=== PATIENT | female | born 1965 | race Caucasian/White ===

== ENCOUNTER 2018-11-11 23:23 | Observation (INO) | payer OTHER ==
[~2018-11-11] VITALS: Ht 154.9 cm; Wt 63.2 kg
--- NOTE | 2018-11-11 23:43 | ED.ADGEN ---
Past History Past Medical History: Hypertension Adult General Chief Complaint Chief Complaint ".. I was out walking my dogs.... Sudeep.. Bonilla and .. Roverto.. Roverto is mom.. but afterwards I came in ... I started getting really dizzy.. and next thing I know guess I passed out... and fell.. I bruised up this Lt arm good.. ... now I got a head ache, nauseated... and some neck pain... besides this Lt. arm pain.. ".. " It seemed like I was getting tunnel vision before I went down..." HPI HPI Patient is a 53 year old female who presents with a syncopal or near syncopal episode where she fell on her right arm. Patient states her field of vision se ems to be closing and before she fell. Patient did have some palpitations before the fall. Patient denies any history of recent change in meds. Patient does smoke. No previous history of strokes or TIA TIAs. No previous cardiac history. Patient does have a history of hypertension. Patient normally follows Dr. Coronado. No recent travel or specific ill contacts. No history immunosu ppression. Some recent complaints of chills. Review of Systems Review of Systems Constitutional: Hx of chills [] Eyes: Denies change in visual acuity, redness, or eye pain [] HENT: Denies nasal congestion or sore throat [] Respiratory: Denies cough or shortness of breath [] Cardiovascular: No additional information not addressed in HPI [] GI: Denies abdominal pain, nausea, vomiting, bloody stools or diarrhea [] : Denies dysuria or hematuria [] Musculoskeletal: Denies back pain or joint pain [] Except complaints of Lt upper arm pain. Integument: Denies rash or skin lesions [] Neurologic: Denies headache, focal weakness or sensory changes []complaints of syncope or near syncopal event and fall Endocrine: Denies polyuria or polydipsia [] All other systems were reviewed and found to be within normal limits, except as documented in this note. Family History Family History Noncontributory Current Medications Current Medications Current Medications Medications (Trade) Dose Ordered Sig/Caro Start Time Stop Time Status Last Admin Dose Admin Lactated Ringer's 1,000 ml @ 1,000 mls/hr Q1H 11/12/18 00:30 11/12/18 01:29 DC 11/12/18 00:18 1,000 MLS/HR Ondansetron HCl (Zofran) 8 mg 1X ONCE 11/12/18 00:30 11/12/18 00:31 DC 11/12/18 00:18 8 MG See nursing for home meds Allergies Allergies Allergies Coded Allergies Type Severity Reaction Last Updated Verified Opioids - Morphine Analogues Allergy Intermediate 11/12/18 Yes Opioids-Meperidine and Related Allergy Intermediate 11/12/18 Yes Opioids-Methadone and Related Allergy Intermediate 11/12/18 Yes Sulfa (Sulfonamide Antibiotics) Allergy Intermediate 11/12/18 Yes codeine Allergy Intermediate 11/12/18 Yes No known drug allergies Physical Exam Physical Exam Constitutional: Moderate acute distress, non-toxic appearance. [] HENT: Normocephalic, atraumatic, bilateral external ears normal, oropharynx moist, no oral exudates, nose normal. [] Eyes: PERRLA, EOMI, conjunctiva normal, no discharge. Glasses Neck: Normal range of motion, no tenderness, supple, no stridor. [] Cardiovascular:Heart rate regular rhythm, no murmur []PMI bilaterally to the left Lungs & Thorax: Bilateral breath sounds equal apex with scattered wheezes auscultation [] Abdomen: Bowel sounds normal, soft, no tenderness, no masses, no pulsatile masses. [] Old surgical scars Skin: Warm, dry, no erythema, no rash. [] Scars on arms after skin removal- (after weight loss ). Back: No tenderness, no CVA tenderness. [] Extremities: No tenderness, no cyanosis, no clubbing, ROM intact, no edema. [] Large hematoma contusion left humeral area Neurologic: Alert and oriented X 3, normal motor function, normal sensory function, no focal deficits noted. []DTRs +2 patella and brachial. Small Battery Plate Assembler equal. Distal vibratory sensation present. Air-conduction more than bone conduction and no lateralization. 128 Psychologic: Affect anxious, judgement normal, mood normal. [] Current Patient Data Vital Signs Vital Signs Date Time Temp Pulse Resp B/P (MAP) Pulse Ox O2 Delivery O2 Flow Rate FiO2 11/12/18 00:15 77 20 113/69 (84) 99 Room Air 11/11/18 23:35 97.8 Lab Results Laboratory Tests Test 11/11/18 23:30 11/11/18 23:50 Urine Collection Type Void Urine Color Yellow Urine Clarity Clear Urine pH 7.0 Urine Specific [place] 1.020 Urine Protein Trace (NEG-TRACE) Urine Glucose (UA) Neg mg/dL (NEG) Urine Ketones (Stick) Neg mg/dL (NEG) Urine Blood Neg (NEG) Urine Nitrite Neg (NEG) Urine Bilirubin Neg (NEG) Urine Urobilinogen Dipstick 0.2 mg/dL (0.2 mg/dL) Urine Leukocyte Esterase Trace (NEG) Urine RBC 0 /HPF (0-2) Urine WBC 5-10 /HPF (0-4) Urine Squamous Epithelial Cells Mod /LPF Urine Bacteria Few /HPF (0-FEW) Urine Opiates Screen Neg (NEG) Urine Methadone Screen Neg (NEG) Urine Barbiturates Neg (NEG) Urine Phencyclidine Screen Neg (NEG) Urine Amphetamine/Methamphetamine Neg (NEG) Urine Benzodiazepines Screen Neg (NEG) Urine Cocaine Screen Neg (NEG) Urine Cannabinoids Screen Pos (NEG) Urine Ethyl Alcohol Neg (NEG) White Blood Count 9.7 x10^3/uL (4.0-11.0) Red Blood Count 3.79 x10^6/uL (3.50-5.40) Hemoglobin 11.8 g/dL (12.0-15.5) L Hematocrit 35.2 % (36.0-47.0) L Mean Corpuscular Volume 93 fL (79-100) Mean Corpuscular Hemoglobin 31 pg (25-35) Mean Corpuscular Hemoglobin Concent 33 g/dL (31-37) Red Cell Distribution Width 12.9 % (11.5-14.5) Platelet Count 327 x10^3/uL (140-400) Neutrophils (%) (Auto) 47 % (31-73) Lymphocytes (%) (Auto) 40 % (24-48) Monocytes (%) (Auto) 7 % (0-9) Eosinophils (%) (Auto) 5 % (0-3) H Basophils (%) (Auto) 1 % (0-3) Neutrophils # (Auto) 4.6 x10^3uL (1.8-7.7) Lymphocytes # (Auto) 3.9 x10^3/uL (1.0-4.8) Monocytes # (Auto) 0.7 x10^3/uL (0.0-1.1) Eosinophils # (Auto) 0.5 x10^3/uL (0.0-0.7) Basophils # (Auto) 0.1 x10^3/uL (0.0-0.2) Erythrocyte Sedimentation Rate 10 (0-25) Prothrombin Time 9.9 SEC (9.4-11.4) Prothrombin Time INR 1.0 (0.9-1.1) PTT 23 SEC (23-33) D-Dimer (Priscilla) 0.24 mg/L (0.00-0.50) Sodium Level 135 mmol/L (136-145) L Potassium Level 3.0 mmol/L (3.5-5.1) L Chloride Level 99 mmol/L (98-107) Carbon Dioxide Level 25 mmol/L (21-32) Anion Gap 11 (6-14) Blood Urea Nitrogen 11 mg/dL (7-20) Creatinine 0.9 mg/dL (0.6-1.0) Estimated GFR (Cockcroft-Gault) 65.5 Glucose Level 198 mg/dL (70-99) H Calcium Level 9.0 mg/dL (8.5-10.1) Magnesium Level 2.1 mg/dL (1.8-2.4) Total Bilirubin 0.2 mg/dL (0.2-1.0) Direct Bilirubin 0.1 mg/dL (0.0-0.2) Aspartate Amino Transferase (AST) 24 U/L (15-37) Alanine Aminotransferase (ALT) 24 U/L (14-59) Alkaline Phosphatase 80 U/L (46-116) Creatine Kinase 319 U/L (26-192) H Troponin I Quantitative < 0.017 ng/mL (0-0.055) LU-Ivg-L-Type Natriuretic Peptide 35 pg/mL (0-124) Total Protein 7.2 g/dL (6.4-8.2) Albumin 3.6 g/dL (3.4-5.0) Lipase 188 U/L (73-393) EKG EKG My interpretation EKG shows a sinus rhythm at 85 bpm. No acute morphology[] Radiology/Procedures Radiology/Procedures [][address] [address] IMAGING REPORT Signed PATIENT: SWEETIE HOLLAND ACCOUNT: [id number] : 1965 LOCATION: ER AGE: 53 SEX: F EXAM STATUS: REG ER ORD. PHYSICIAN: ALEXANDR KAHN MD REASON: Fall, dizzy, passed out, headache and neck pain PROCEDURE: CT HEAD AND CERVICAL SPINE WO INDICATION: Status post fall COMPARISON: None. TECHNIQUE: Axial CT images obtained through the head and cervical spine. One or more of the following individualized dose reduction techniques were utilized for this examination: 1. Automated exposure control; 2. Adjustment of the mA and/or kV according to patient size; 3. Use of iterative reconstruction technique. FINDINGS: Head: No acute intracranial hemorrhage. No hydrocephalus. Suprasellar cistern is not effaced. No midline shift. Cervical spine: Degenerative changes are identified with osteophyte formation at the vertebral body endplates as well as disc protrusions and facet hypertrophy. A definite acute fracture or dislocation is not identified. Suspected thyroid nodules. IMPRESSION: 1. No acute intracranial hemorrhage. 2. Degenerative changes the spine without a definite acute fracture or dislocation. 3. Suspected thyroid nodules. Nonemergent ultrasound could better evaluate Electronically signed by: Bessie Cline MD (11/12/2018 12:40 AM) [facility] DICTATED AND SIGNED BY: BESSIE CLINE MD DATE: 11/12/1839 CC: NEO CORONADO MD; ALEXANDR KAHN MD ~ Course & Med Decision Making Course & Med Decision Making Pertinent Labs and Imaging studies reviewed. (See chart for details) Pt. admitted to Dr. Ward for further eval. US carotids pending at time of admit. [] Final Impression Final Impression 1. Syncope/syncope 2. Fall 3. Left arm contusion 4. History of hypertension 5. History of morbid obesity-weight loss thru. surgical sleeve procedure[] 6. Hyponatremia 135 7. Hypokalemia 3.0 8. Anemia Hgb 11.8 Dragon Disclaimer Dragon Disclaimer This electronic medical record was generated, in whole or in part, using a voice recognition dictation system. Discharge Summary Visit Information Final Diagnosis Problems Medical Problems: (1) Syncope Status: Acute Brief Hospital Course Allergies Allergies Coded Allergies Type Severity Reaction Last Updated Verified Opioids - Morphine Analogues Allergy Intermediate 11/12/18 Yes Opioids-Meperidine and Related Allergy Intermediate 11/12/18 Yes Opioids-Methadone and Related Allergy Intermediate 11/12/18 Yes Sulfa (Sulfonamide Antibiotics) Allergy Intermediate 11/12/18 Yes codeine Allergy Intermediate 11/12/18 Yes Vital Signs Vital Signs Date Time Temp Pulse Resp B/P (MAP) Pulse Ox O2 Delivery O2 Flow Rate FiO2 11/12/18 00:15 77 20 113/69 (84) 99 Room Air 11/11/18 23:35 97.8 Lab Results Laboratory Tests Test 11/11/18 23:30 11/11/18 23:50 Urine Collection Type Void Urine Color Yellow Urine Clarity Clear Urine pH 7.0 Urine Specific [place] 1.020 Urine Protein Trace (NEG-TRACE) Urine Glucose (UA) Neg mg/dL (NEG) Urine Ketones (Stick) Neg mg/dL (NEG) Urine Blood Neg (NEG) Urine Nitrite Neg (NEG) Urine Bilirubin Neg (NEG) Urine Urobilinogen Dipstick 0.2 mg/dL (0.2 mg/dL) Urine Leukocyte Esterase Trace (NEG) Urine RBC 0 /HPF (0-2) Urine WBC 5-10 /HPF (0-4) Urine Squamous Epithelial Cells Mod /LPF Urine Bacteria Few /HPF (0-FEW) Urine Opiates Screen Neg (NEG) Urine Methadone Screen Neg (NEG) Urine Barbiturates Neg (NEG) Urine Phencyclidine Screen Neg (NEG) Urine Amphetamine/Methamphetamine Neg (NEG) Urine Benzodiazepines Screen Neg (NEG) Urine Cocaine Screen Neg (NEG) Urine Cannabinoids Screen Pos (NEG) Urine Ethyl Alcohol Neg (NEG) White Blood Count 9.7 x10^3/uL (4.0-11.0) Red Blood Count 3.79 x10^6/uL (3.50-5.40) Hemoglobin 11.8 g/dL (12.0-15.5) Hematocrit 35.2 % (36.0-47.0) Mean Corpuscular Volume 93 fL (79-100) Mean Corpuscular Hemoglobin 31 pg (25-35) Mean Corpuscular Hemoglobin Concent 33 g/dL (31-37) Red Cell Distribution Width 12.9 % (11.5-14.5) Platelet Count 327 x10^3/uL (140-400) Neutrophils (%) (Auto) 47 % (31-73) Lymphocytes (%) (Auto) 40 % (24-48) Monocytes (%) (Auto) 7 % (0-9) Eosinophils (%) (Auto) 5 % (0-3) Basophils (%) (Auto) 1 % (0-3) Neutrophils # (Auto) 4.6 x10^3uL (1.8-7.7) Lymphocytes # (Auto) 3.9 x10^3/uL (1.0-4.8) Monocytes # (Auto) 0.7 x10^3/uL (0.0-1.1) Eosinophils # (Auto) 0.5 x10^3/uL (0.0-0.7) Basophils # (Auto) 0.1 x10^3/uL (0.0-0.2) Erythrocyte Sedimentation Rate 10 (0-25) Prothrombin Time 9.9 SEC (9.4-11.4) Prothromb Time International Ratio 1.0 (0.9-1.1) Activated Partial Thromboplast Time 23 SEC (23-33) D-Dimer (Priscilla) 0.24 mg/L (0.00-0.50) Sodium Level 135 mmol/L (136-145) Potassium Level 3.0 mmol/L (3.5-5.1) Chloride Level 99 mmol/L (98-107) Carbon Dioxide Level 25 mmol/L (21-32) Anion Gap 11 (6-14) Blood Urea Nitrogen 11 mg/dL (7-20) Creatinine 0.9 mg/dL (0.6-1.0) Estimated GFR (Cockcroft-Gault) 65.5 Glucose Level 198 mg/dL (70-99) Calcium Level 9.0 mg/dL (8.5-10.1) Magnesium Level 2.1 mg/dL (1.8-2.4) Total Bilirubin 0.2 mg/dL (0.2-1.0) Direct Bilirubin 0.1 mg/dL (0.0-0.2) Aspartate Amino Transf (AST/SGOT) 24 U/L (15-37) Alanine Aminotransferase (ALT/SGPT) 24 U/L (14-59) Alkaline Phosphatase 80 U/L (46-116) Creatine Kinase 319 U/L (26-192) Troponin I Quantitative < 0.017 ng/mL (0-0.055) VZ-Nto-L-Type Natriuretic Peptide 35 pg/mL (0-124) Total Protein 7.2 g/dL (6.4-8.2) Albumin 3.6 g/dL (3.4-5.0) Lipase 188 U/L (73-393) Brief Hospital Course Ms. Holland is a 53 old female who presented with syncope. Admitted Dr Ward- further eval Discharge Information Condition at Discharge: Improved Dischare Medications Current Medications Lactated Ringer's 1,000 ml @ 1,000 mls/hr Q1H IV Last administered on 11/12/18at 00:18; Admin Dose 1,000 MLS/HR; Start 11/12/18 at 00:30; Stop 11/12/18 at 01:29; Status DC Ondansetron HCl (Zofran) 8 mg 1X ONCE IV Last administered on 11/12/18at 00:18; Admin Dose 8 MG; Start 11/12/18 at 00:30; Stop 11/12/18 at 00:31; Status DC Active Scripts Active Reported Synthroid (Levothyroxine Sodium) 50 Mcg Tablet 50 Mcg PO DAILYAC Effexor Xr (Venlafaxine Hcl) 37.5 Mg Cap.er.24h 37.5 Mg PO DAILY Lisinopril-Hctz 20-12.5 Mg Tab (Lisinopril/Hydrochlorothiazide) 1 Each Tablet 1 Tab PO DAILY Discharge Summary Visit Information Final Diagnosis Problems Medical Problems: (1) Syncope Status: Acute Brief Hospital Course Allergies Allergies Coded Allergies Type Severity Reaction Last Updated Verified Opioids - Morphine Analogues Allergy Intermediate 11/12/18 Yes Opioids-Meperidine and Related Allergy Intermediate 11/12/18 Yes Opioids-Methadone and Related Allergy Intermediate 11/12/18 Yes Sulfa (Sulfonamide Antibiotics) Allergy Intermediate 11/12/18 Yes codeine Allergy Intermediate 11/12/18 Yes Vital Signs Vital Signs Date Time Temp Pulse Resp B/P (MAP) Pulse Ox O2 Delivery O2 Flow Rate FiO2 11/12/18 00:15 77 20 113/69 (84) 99 Room Air 11/11/18 23:35 97.8 Lab Results Laboratory Tests Test 11/11/18 23:30 11/11/18 23:50 Urine Collection Type Void Urine Color Yellow Urine Clarity Clear Urine pH 7.0 Urine Specific [place] 1.020 Urine Protein Trace (NEG-TRACE) Urine Glucose (UA) Neg mg/dL (NEG) Urine Ketones (Stick) Neg mg/dL (NEG) Urine Blood Neg (NEG) Urine Nitrite Neg (NEG) Urine Bilirubin Neg (NEG) Urine Urobilinogen Dipstick 0.2 mg/dL (0.2 mg/dL) Urine Leukocyte Esterase Trace (NEG) Urine RBC 0 /HPF (0-2) Urine WBC 5-10 /HPF (0-4) Urine Squamous Epithelial Cells Mod /LPF Urine Bacteria Few /HPF (0-FEW) Urine Opiates Screen Neg (NEG) Urine Methadone Screen Neg (NEG) Urine Barbiturates Neg (NEG) Urine Phencyclidine Screen Neg (NEG) Urine Amphetamine/Methamphetamine Neg (NEG) Urine Benzodiazepines Screen Neg (NEG) Urine Cocaine Screen Neg (NEG) Urine Cannabinoids Screen Pos (NEG) Urine Ethyl Alcohol Neg (NEG) White Blood Count 9.7 x10^3/uL (4.0-11.0) Red Blood Count 3.79 x10^6/uL (3.50-5.40) Hemoglobin 11.8 g/dL (12.0-15.5) Hematocrit 35.2 % (36.0-47.0) Mean Corpuscular Volume 93 fL (79-100) Mean Corpuscular Hemoglobin 31 pg (25-35) Mean Corpuscular Hemoglobin Concent 33 g/dL (31-37) Red Cell Distribution Width 12.9 % (11.5-14.5) Platelet Count 327 x10^3/uL (140-400) Neutrophils (%) (Auto) 47 % (31-73) Lymphocytes (%) (Auto) 40 % (24-48) Monocytes (%) (Auto) 7 % (0-9) Eosinophils (%) (Auto) 5 % (0-3) Basophils (%) (Auto) 1 % (0-3) Neutrophils # (Auto) 4.6 x10^3uL (1.8-7.7) Lymphocytes # (Auto) 3.9 x10^3/uL (1.0-4.8) Monocytes # (Auto) 0.7 x10^3/uL (0.0-1.1) Eosinophils # (Auto) 0.5 x10^3/uL (0.0-0.7) Basophils # (Auto) 0.1 x10^3/uL (0.0-0.2) Erythrocyte Sedimentation Rate 10 (0-25) Prothrombin Time 9.9 SEC (9.4-11.4) Prothromb Time International Ratio 1.0 (0.9-1.1) Activated Partial Thromboplast Time 23 SEC (23-33) D-Dimer (Priscilla) 0.24 mg/L (0.00-0.50) Sodium Level 135 mmol/L (136-145) Potassium Level 3.0 mmol/L (3.5-5.1) Chloride Level 99 mmol/L (98-107) Carbon Dioxide Level 25 mmol/L (21-32) Anion Gap 11 (6-14) Blood Urea Nitrogen 11 mg/dL (7-20) Creatinine 0.9 mg/dL (0.6-1.0) Estimated GFR (Cockcroft-Gault) 65.5 Glucose Level 198 mg/dL (70-99) Calcium Level 9.0 mg/dL (8.5-10.1) Magnesium Level 2.1 mg/dL (1.8-2.4) Total Bilirubin 0.2 mg/dL (0.2-1.0) Direct Bilirubin 0.1 mg/dL (0.0-0.2) Aspartate Amino Transf (AST/SGOT) 24 U/L (15-37) Alanine Aminotransferase (ALT/SGPT) 24 U/L (14-59) Alkaline Phosphatase 80 U/L (46-116) Creatine Kinase 319 U/L (26-192) Troponin I Quantitative < 0.017 ng/mL (0-0.055) XV-Rts-K-Type Natriuretic Peptide 35 pg/mL (0-124) Total Protein 7.2 g/dL (6.4-8.2) Albumin 3.6 g/dL (3.4-5.0) Lipase 188 U/L (73-393) Brief Hospital Course Ms. Holland is a 53 old female who presented with hx syncope. Admitted Dr. Ward. Discharge Information Condition at Discharge: Improved Dischare Medications Current Medications Lactated Ringer's 1,000 ml @ 1,000 mls/hr Q1H IV Last administered on 11/12/18at 00:18; Admin Dose 1,000 MLS/HR; Start 11/12/18 at 00:30; Stop 11/12/18 at 01:29; Status DC Ondansetron HCl (Zofran) 8 mg 1X ONCE IV Last administered on 11/12/18at 00:18; Admin Dose 8 MG; Start 11/12/18 at 00:30; Stop 11/12/18 at 00:31; Status DC Active Scripts Active Reported Synthroid (Levothyroxine Sodium) 50 Mcg Tablet 50 Mcg PO DAILYAC Effexor Xr (Venlafaxine Hcl) 37.5 Mg Cap.er.24h 37.5 Mg PO DAILY Lisinopril-Hctz 20-12.5 Mg Tab (Lisinopril/Hydrochlorothiazide) 1 Each Tablet 1 Tab PO DAILY Dragon Disclaimer This chart was dictated in whole or in part using Voice Recognition software in a busy, high-work load, and often noisy Emergency Department environment. It may contain unintended and wholly unrecognized errors or omissions. Dragon Disclaimer This chart was dictated in whole or in part using Voice Recognition software in a busy, high-work load, and often noisy Emergency Department environment. It may contain unintended and wholly unrecognized errors or omissions. ALEXANDR KAHN MD Nov 11, 2018 23:43
[2018-11-12] MEDS ORDERED: LISI1TAB5 PO (00:12)
[2018-11-12] MEDS ORDERED: VENL37.5 PO (00:12)
[2018-11-12] MEDS ORDERED: LEVO50TA PO (00:12)
[2018-11-12 00:14] LABS: BASO # 0.1 x10^3/uL (0.0-0.2); BASO % 1 % (0-3); EOS # 0.5 x10^3/uL (0.0-0.7); EOS % 5 % (0-3); HEMATOCRIT 35.2 % (36.0-47.0); HEMOGLOBIN 11.8 g/dL (12.0-15.5); LYMPH # 3.9 x10^3/uL (1.0-4.8); LYMPH % 40 % (24-48); MEAN CORPUSCULAR HEMOGLOBIN 31 pg (25-35); MEAN CORPUSCULAR HGB CONC 33 g/dL (31-37); MEAN CORPUSCULAR VOLUME 93 fL (79-100); MONO # 0.7 x10^3/uL (0.0-1.1); MONO % 7 % (0-9); NEUT # 4.6 x10^3uL (1.8-7.7); NEUT % 47 % (31-73); PLATELET COUNT 327 x10^3/uL (140-400); RED BLOOD COUNT 3.79 x10^6/uL (3.50-5.40); RED CELL DISTRIBUTION WIDTH 12.9 % (11.5-14.5); WHITE BLOOD COUNT 9.7 x10^3/uL (4.0-11.0)
[2018-11-12 00:21] LABS: BACTERIA,URINE FEW /HPF (0-FEW); BILIRUBIN,URINE NEG (NEG); CLARITY,URINE CLEAR; COLOR,URINE YELLOW; GLUCOSE,URINE NEG (NEG); NITRITE,URINE NEG (NEG); RBC,URINE 0 /HPF (0-2); SQUAMOUS EPITHELIAL CELL,UR MOD /LPF; UROBILINOGEN,URINE 0.2 mg/dL (0.2 mg/dL)
[2018-11-12 00:26] LABS: BARBITURATES NEG (NEG); BENZODIAZEPINES NEG (NEG); CANNABINOIDS POS (NEG); COCAINE NEG (NEG); METHADONE NEG (NEG); OPIATES NEG (NEG); PHENCYCLIDINE NEG (NEG)
[2018-11-12 00:27] LABS: AMPHETAMINE/METHAMPHETAMINE NEG (NEG)
[2018-11-12] MEDS ORDERED: ONDANSETRON PF 4 MG/2 ML VIAL. IV ONE (00:30)
[2018-11-12] MEDS ORDERED: IV RINGERS SOLUTION,LACTATED 1,000 ML IV SCH (00:30)
[2018-11-12 00:32] LABS: ALBUMIN 3.6 g/dL (3.4-5.0); CREATININE 0.9 mg/dL (0.6-1.0); DIRECT BILIRUBIN 0.1 mg/dL (0.0-0.2); GFR 65.5; MAGNESIUM 2.1 mg/dL (1.8-2.4); TOTAL BILIRUBIN 0.2 mg/dL (0.2-1.0); TOTAL PROTEIN 7.2 g/dL (6.4-8.2)
--- NOTE | 2018-11-12 00:42 | RAD ---
INDICATION: Status post fall COMPARISON: None. TECHNIQUE: Axial CT images obtained through the head and cervical spine. One or more of the following individualized dose reduction techniques were utilized for this examination: 1. Automated exposure control; 2. Adjustment of the mA and/or kV according to patient size; 3. Use of iterative reconstruction technique. FINDINGS: Head: No acute intracranial hemorrhage. No hydrocephalus. Suprasellar cistern is not effaced. No midline shift. Cervical spine: Degenerative changes are identified with osteophyte formation at the vertebral body endplates as well as disc protrusions and facet hypertrophy. A definite acute fracture or dislocation is not identified. Suspected thyroid nodules. IMPRESSION: 1. No acute intracranial hemorrhage. 2. Degenerative changes the spine without a definite acute fracture or dislocation. 3. Suspected thyroid nodules. Nonemergent ultrasound could better evaluate Electronically signed by: Aung Cline MD (11/12/2018 12:40 AM) [facility]
[2018-11-12 01:11] LABS: SEDIMENTATION RATE 10 (0-25)
[2018-11-12] MEDS ORDERED: SODIUM BICARB ADULT 8.4% 50 MEQ/50 ML DISP.SYRIN. IV ONE (01:30)
[2018-11-12] MEDS ORDERED: POTASSIUM CHLORIDE 20 MEQ/15 ML ORAL LIQUID. PO ONE (01:30)
[2018-11-12] MEDS ORDERED: ONDANSETRON PF 4 MG/2 ML VIAL. IV PRN (01:45)
[2018-11-12] MEDS ORDERED: ACETAMINOPHEN 500 MG TABLET PO ONE ×2 (02:08→02:30)
[2018-11-12 02:45] VITALS: BP 114/73
[2018-11-12] MEDS ORDERED: TRAZ-120 PO (03:49)
[2018-11-12] MEDS ORDERED: LISI1TAB7 PO (03:49)
[2018-11-12] MEDS ORDERED: IPRATRPIUM/ALBUTEROL 0.5/2.5MG 3 ML NEBU. ONE (05:30)
[2018-11-12 06:57] VITALS: BP 110/63
[2018-11-12] MEDS ORDERED: POTASSIUM CL 40MEQ IN 0.9%NACL 1,000 ML IV SCH (07:00)
[2018-11-12] MEDS ORDERED: LEVOTHYROXINE 50 MCG TABLET PO SCH (07:00)
--- NOTE | 2018-11-12 07:37 | RAD ---
CHEST PA LATERAL History: Fall, dizziness, pain Comparison: None. Findings: Frontal and lateral views of chest were obtained. The cardiomediastinal silhouette is normal. Pulmonary vasculature is normal. The lungs are clear. No pleural effusion or pneumothorax is seen. There is no acute bone abnormality. Dextroconvexity of the thoracic spine noted. IMPRESSION: No acute cardiopulmonary process. If fracture is a persistent concern, consider further imaging. Electronically signed by: Spencer Membreno MD (11/12/2018 7:33 AM) [facility]
--- NOTE | 2018-11-12 07:39 | RAD ---
Examination: HUMERUS LEFT, ELBOW LEFT 3V History: Fall, dizziness, pain Comparison/Correlation: None Findings: Two-view left humerus and 3 view left elbow x-ray exam were performed. Acromioclavicular joint narrowing is present. Glenohumeral joint is grossly unremarkable. There is no fat pad displacement identified about the elbow to suggest joint effusion. Mild enthesopathy at the distal triceps tendon attachment site is evident. No fracture or bony destruction. Soft tissues are unremarkable. Impression: No acute process. Electronically signed by: Spencer Membreno MD (11/12/2018 7:35 AM) [facility]
[2018-11-12] MEDS ORDERED: IPRATRPIUM/ALBUTEROL 0.5/2.5MG 3 ML NEBU. NEB SCH (08:00)
[2018-11-12] MEDS ORDERED: POTASSIUM CHLORIDE 20 MEQ TABLET.ER. PO SCH (09:00)
--- NOTE | 2018-11-12 13:18 | RAD ---
Examination: DOPPLER CAROTID BILAT History: Syncope Comparison/Correlation: None Findings: Right side: Peak systolic flow velocity of the CCA is 109 cm/sec. Peak systolic flow velocity of the ICA is 86 cm/sec. The ICA/CCA ratio is 1.2. Peak end diastolic flow velocity of the ICA is 37 cm/sec. The peak systolic velocity of the ECA is 68 cm/sec. No significant plaque formation is identified. Minimal calcific plaque involving the common carotid artery extending to the bifurcation. Left side: Peak systolic flow velocity of the CCA is 91 cm/sec. Peak systolic flow velocity of the ICA is 80 cm/sec. The ICA/CCA ratio is 0.96. Peak end diastolic flow velocity of the ICA is 80 cm/sec. Peak systolic flow velocity of the ECA is 83 cm/sec. No significant plaque formation is identified. Minimal calcific plaque involving the common carotid artery extending to the bifurcation. Vertebral arteries: Bilateral vertebral arteries demonstrate antegrade flow. IMPRESSION: No hemodynamically significant internal carotid artery stenosis is identified. PQRS Compliance Statement - Stenosis calculations for CT, MR and conventional angiography are based upon measurement of the distal ICA diameter in accordance with the NASCET methodology. Stenosis calculations for carotid ultrasound studies are derived from validated velocity criteria which are known to correlate with the NASCET methodology. Electronically signed by: Spencer Membreno MD (11/12/2018 1:15 PM) [facility]
[2018-11-12 15:21] VITALS: BP 124/85
--- NOTE | 2018-11-12 17:08 | CONS ---
DATE OF CONSULTATION: 11/12/2018 REASON FOR CONSULTATION: Syncope. HISTORY OF PRESENT ILLNESS: A 53-year-old woman, who was in her usual state of health who apparently was walking her dog and upon returning to the house, had a syncopal event and fell to the floor. She sustained an injury to her left arm and feels that she may have hit the back of her head. She thinks she was down for maybe less than 5 minutes and when she came to, she called her son who then subsequently helped her up and brought her to the ER. On initial evaluation in the ER, no acute pathology was noted and she was admitted for overnight observation. In talking to the patient, she denies any specific cardiac symptoms such as chest pain, dyspnea, orthopnea or PND. She has not had any significant palpitations. No prior cardiac history. She reports compliance with her medications including lisinopril/hydrochlorothiazide. PAST MEDICAL HISTORY: 1. Hypertension. 2. Hypothyroidism, status post left thyroid lobe resection. SOCIAL HISTORY: The patient smokes approximately half a pack a day. Denies any alcohol. 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 She also uses marijuana bath salts, which she has been new to her over the last 2-3 weeks. FAMILY HISTORY: Noncontributory. CURRENT CARDIAC MEDICATIONS, 1. Lisinopril/hydrochlorothiazide 20/12.5. 2. Synthroid. ALLERGIES: MULTIPLE OPIOIDS AND OPIOID ANALOGS, SULFA, CODEINE AND EGGS. REVIEW OF SYSTEMS: As noted above in HPI, otherwise, negative for 10/14 systems reviewed. PHYSICAL EXAMINATION: VITAL SIGNS: Afebrile, 69, 20, 124/85, 98% on room air. GENERAL: She is alert and oriented, in no acute distress. HEAD AND NECK: Unremarkable. CARDIAC: Regular rate and rhythm without murmurs, rubs or gallops. LUNGS: Clear to auscultation bilaterally. ABDOMEN: Soft, nontender, nondistended. EXTREMITIES: No clubbing, cyanosis or edema. NEUROLOGIC: No focal deficits. MUSCULOSKELETAL: No trauma. DIAGNOSTIC STUDIES: Hemoglobin, platelets grossly within normal limits. Cardiac enzymes are negative x 1. TSH is within normal limits. Potassium 3.0 with a normal creatinine. Chest x-ray and carotid Doppler study and head and neck CT are unremarkable. EKG demonstrates sinus rhythm without any acute T-wave changes. Telemetry does not reveal any significant pathology. IMPRESSION: Syncope: Differential diagnosis is broad, but possibilities include hypotension in the setting of the heat and use of marijuana bath salt versus arrhythmia in the setting of hypokalemia. She does not appear to have any clear structural heart disease on examination today and her EKG is unremarkable and thus far telemetry has been unrevealing without any obvious signs of ischemia based on laboratory and EKG testing. RECOMMENDATIONS: I discussed with the patient that she probably should cease using the marijuana bath salts for now. Monitor blood pressure at home closely. Replete potassium and we will plan for an outpatient echocardiogram and event monitoring and follow up in the office. Thank you for this consultation. JOSE R MORIN MD DR: SRINIVASAN/kaylynn JOB#: [id number] / [id number]
--- NOTE | 2018-11-12 17:54 | NUR ---
Discharge Note: [facility] [address] Patient seen by Dr. Ward and Dr. Singh. Patient's potassium levels now WNL and per Dr. Singh, patient to receive event monitor in mail at home and follow up outpatient. Instructions given to patient. Discharge instructions and discharge home medications reviewed with patient and a copy given. All questions have been answered and understanding verbalized. The following instructions and handouts were given: medications, follow up instructions, prescription and educational handout given. Discontinued lines and drains: peripheral IV discontinued with no complications. Patient discharged to home with via private vehicle.
--- NOTE | 2018-11-12 19:45 | SSS ---
ADMIT DATE: 11/12/2018 HISTORY OF PRESENT ILLNESS: The patient is a 53-year-old female patient, who was brought to the Emergency Room, who stated that she was out walking her dog after she came in, she started getting really dizzy and next thing she knows she passed out, hitting the back of her head and also bruised her left arm and was complaining of headache, nausea and some neck pain besides her left arm pain. She also complained of shortness of breath and has also palpitation; however, she denied any changes in her medication. She does smoke and apparently uses marijuana salt to soak in 3 times per week. She normally follows with ____. She was extensively investigated in the Emergency Room and had an EKG, which showed that she was in sinus rhythm at a rate of 85 beats per minute. Her CT scan of the head showed no acute intracranial hemorrhage, no hydrocephalus. Suprasellar cisterns are not effaced. No midline shift. Cervical spine showed degenerative changes in spine without definite acute fracture or dislocation, suspected thyroid nodule and non-emergent ultrasound could better evaluate that. She was admitted with syncope, fall, left arm contusion. She has had history of hypertension, for which she is on lisinopril/hydrochlorothiazide as well as hypothyroidism. PAST MEDICAL HISTORY: Significant for hypertension, hypothyroidism that started initially when she was in her early 20s with toxemia of . She has also history of anxiety and depression. PAST SURGICAL HISTORY: Significant for partial thyroidectomy, gastric sleeve surgery and then surgery to remove excess skin from her abdomen and also both arms. She has also right humeral fracture, status post open reduction and internal fixation. ALLERGIES: She is allergic to SULFA DRUGS, CODEINE, EGGS and MORPHINE ANALOGUE, OPIOIDS, MEPERIDINE and RELATED DRUGS. MEDICATIONS: She is currently on following medications: She is on lisinopril/hydrochlorothiazide 20/25 one tablet once a day, trazodone 50 mg at bedtime, venlafaxine for Effexor 150 mg once a day, levothyroxine 50 mcg once a day. FAMILY HISTORY: She has 2 sisters older and one brother who is older and has non-Hodgkin lymphoma. Her father at age in his 40s. He was a chief executive officer and was killed in the line of duty. Her mother in her 70s because of colon cancer. SOCIAL HISTORY: She is . She started smoking since 2008. She smokes half to a pack a day. Drinks alcohol occasionally. She has used marijuana salt for soaking 3 times per week. 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 REVIEW OF SYSTEMS: The patient denied any blurring of vision, cataract, glaucoma or macular degeneration. Denied any earache, tinnitus or sensorineural deafness. Denied any nosebleeds, stuffy nose or postnasal drip. Denied any sore throat, sore tongue, toothache, hoarseness of voice or difficulty swallowing. Denied any nausea, vomiting, diarrhea or constipation. Denied any hematemesis, melena or hematochezia. Denied any dysuria, frequency or hematuria. Denied any chest pain. Did complain of shortness of breath and palpitation, but denied any orthopnea or paroxysmal nocturnal dyspnea. Denied any cough, phlegm or hemoptysis. Denied any dizziness. Did obviously have syncopal episode. PHYSICAL EXAMINATION: GENERAL: On arrival to the Emergency Room, she looked well and was clearly in no apparent respiratory distress. She was pale, but no jaundice, cyanosis or thyromegaly. No jugular venous distension. No limb edema. VITAL SIGNS: Her heart rate on arrival was 87, blood pressure was 128/81, temperature was 97.8, respiratory rate 22 and oxygen saturation was 99%. HEAD, EYES, EARS, NOSE AND THROAT: Showed normocephalic, atraumatic. NECK: Supple. HEART: Showed normal first and second heart sounds. No gallop, rub or murmur. CHEST: Clear to auscultation. No crepitation or rhonchi. ABDOMEN: Distended, soft, nontender. NEUROLOGIC: She was awake, alert, responding appropriately. All cranial nerves intact. EXTREMITIES: She moves extremities without difficulty. LABORATORY DATA: On arrival to the Emergency Room, her white cell count was 9700, hemoglobin 11.8, hematocrit 35, MCV 93, and platelet count of 327,000 with normal manual differential. Her chemistry showed a serum sodium of 135, potassium 3, chloride 99, bicarbonate 25, anion gap of 11, BUN 11, creatinine 0.9, estimated GFR was 65 mL per minute. Her glucose was 198, calcium was 9, magnesium was 2.1. Total bilirubin, AST, ALT, alkaline phosphatase were normal. Her total protein was 7.2, albumin 3.6, globulin was 188. Her prothrombin time was 9.9, INR of 1, aPTT was 23 and D-dimer was 0.24. Urinalysis was essentially unremarkable and toxic screen was positive for cannabinoid. She did have an x-ray of her left humerus and left elbow, which showed no acute process. CT scan of the head and cervical spine also showed no intracranial hemorrhage. Degenerative changes of spine without definite acute fracture or dislocation. She has suspected thyroid nodules and non-emergent ultrasound could better evaluate. She had had a chest x-ray, which showed no acute cardiopulmonary process. If fracture is resistant, consider further imaging. Her acromioclavicular joint narrowing is present. Glenohumeral joint is grossly unremarkable and her carotid Doppler study showed no significant plaque formation identified, minimal calcific plaque involving the common carotid artery extending to the bifurcation. Vertebral arteries demonstrate antegrade flow and the impression is that there is no hemodynamically significant internal carotid artery stenosis identified. ASSESSMENT AND PLAN: The patient was evaluated by the supervisor wool shearing who recommended that the patient can be discharged. She will have an outpatient monitor send to her house. FINAL DISCHARGE DIAGNOSES: Syncopal episode, cause is not clear. The patient has hypokalemia that was improved. Potassium is now 4.5. She has also hyperglycemia; however, it was a random value, not a fasting lipid profile and she was advised to continue on her current medications and follow with her primary care physician. NATHAN WALSH MD DR: MARTA/kaylynn JOB#: [id number] / [id number]
--- NOTE | 2018-11-25 14:51 | EKG ---
[address] [address] Test Date: 2018-11-11 Test Time: 23:40:32 Pat Name: SWEETIE HOLLAND Department: Room: 113 A Gender: Mohel: : 1965 Requested By: ALEXANDR KAHN Order Number: [id number] Reading MD: Sonido Singh MD Measurements Intervals [place] Rate: P: HI: QRS: QRSD: T: QT: QTc: Interpretive Statements SR Electronically Signed On 12-04-2018 14:10:22 CDT by Sonido Singh MD
== END 2018-11-12 17:55 | disposition home or self-care (01) ==
LOC: ER 23:23 → 1 SOUTH 11-12 01:00 → INTOOBSV 11-12 01:00
PROVIDERS: ADMIT Internal Medicine; ATTEND Internal Medicine
DX: R55 Syncope and collapse (principal); I10 Essential (primary) hypertension; E03.9 Hypothyroidism, unspecified; F41.9 Anxiety disorder, unspecified; F32.9 Major depressive disorder, single episode, unspecified; E87.6 Hypokalemia; S40.022A Contusion of left upper arm, initial encounter; F12.90 Cannabis use, unspecified, uncomplicated; F17.210 Nicotine dependence, cigarettes, uncomplicated; W18.30XA Fall on same level, unspecified, initial encounter; Y93.K1 Activity, walking an animal; Y92.89 Other specified places as the place of occurrence of the external cause; Y99.8 Other external cause status; R73.9 Hyperglycemia, unspecified; Z98.890 Other specified postprocedural states; Z80.7 Family history of other malignant neoplasms of lymphoid, hematopoietic and related tissues; Z80.0 Family history of malignant neoplasm of digestive organs
CPT/HCPCS: 36415; 70450; 71046; 72125; 73060; 73080; 80048; 80076; 80307; 81001; 82550; 82947; 83690; 83735; 83880; 84132; 84443; 84484; 85025; 85379; 85610; 85651; 85730; 87086; 93005; 93880; 94640; 96361; 96365; 96366; 96375; 99284; G0238; G0378; G0379; J2405; J7120; J7620

== ENCOUNTER → 2020-01-25 | Outpatient (CLI) | payer OTHER ==
[~2020-01-25] MED LIST: LEVO50TA PO; LISI1TAB20 PO; LISI1TAB37 PO; TRAZ-120 PO; VENL37.5 PO
--- NOTE | 2020-01-25 17:20 | RAD ---
EXAMINATION: ELBOW LEFT 3V, HUMERUS LEFT CLINICAL HISTORY: Left arm pain TECHNIQUE: ELBOW LEFT 3V, HUMERUS LEFT Number of Images/Views: 2 humerus, 3 elbow COMPARISON: Left humerus radiographs 11/12/2018 FINDINGS: Glenohumeral joint appears maintained on limited evaluation. Mild acromioclavicular joint space narrowing. Glenohumeral and radiocarpal joints maintained. No acute fracture. Small enthesophytes at the medial and lateral epicondyles and posterior olecranon. No significant joint effusion. IMPRESSION: No acute osseous abnormality. Electronically signed by: Sd Mitchell DO (01/25/2020 5:18 PM) [id number]
== END | disposition home or self-care (01) ==
LOC: DXRAD 10:39
PROVIDERS: ATTEND Physician Assistant
DX: M79.622 Pain in left upper arm (principal); M25.522 Pain in left elbow; M77.9 Enthesopathy, unspecified
CPT/HCPCS: 73060; 73080